=== PATIENT | female | born 1935 | race Caucasian/White ===

== ENCOUNTER 2023-07-25 11:29 | Emergency (ER) | payer MEDICARE, BC, SELFPAY ==
[2023-07-25] VITALS (14 sets, daily range): BP systolic 139–217; BP diastolic 61–93; BMI 24.4
[2023-07-25 11:58] LABS: % Basophils 1.1 % (0-2); % Eosinophils 0.4 % (0-6); % Immature Granulocytes 0.2 % (0-0.5); % Lymphocytes 29.4 % (20.5-51.1); % Monocytes 6.5 % (1.7-9.3); % Neutrophils 62.4 % (42.2-75.2); Absolute Basophils 0.1 10^3/uL (0-0.2); Absolute Lymphocytes 1.6 10^3/uL (1.2-3.4); Absolute Monocytes 0.4 10^3/uL (0.1-0.6); Absolute Neutrophils 3.5 10^3/uL (1.4-6.5); Hematocrit 35.5 % (37.0-47.0); Hemoglobin 11.7 g/dL (12.0-16.0); Mean Corpuscular Hgb 28.8 pg (27.0-31.0); Mean Corpuscular Volume 87.4 fL (81.0-99.0); Mean Platelet Volume 10.8 fL (7.4-10.4); Nucleated Red Blood Cells % 0 %; Platelet Count 222 10^3/uL (130-400); Red Blood Cell Count 4.06 10^6/uL (4.20-5.40); Red Cell Dist. Width 13.5 % (11.5-14.5); White Blood Cell Count 5.6 10^3/uL (4.8-10.8)
[2023-07-25 12:13] LABS: ALT (SGPT) 22 U/L (0-35); AST (SGOT) 35 U/L (14-36); Albumin 4.6 g/dl (3.5-5.0); Alkaline Phosphatase 83 U/L (38-126); Blood Urea Nitrogen 17 mg/dl (7-17); Calcium 9.3 mg/dl (8.4-10.2); Carbon Dioxide 28 mmol/L (22-30); Chloride 101 mmol/L (98-107); Glucose 106 mg/dl (70-99); Potassium 3.9 mmol/L (3.5-5.1); Sodium 136 mmol/L (135-145); Total Bilirubin 1.3 mg/dl (0.2-1.3); Total Protein 7.1 g/dl (6.3-8.2); eGFR > 60.00
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
--- NOTE | 2023-07-25 16:00 | EDRN ---
this RN spoke with Amado MCGARRY and talked about giving the pt PO blood pressure medication now, rechecking BP, then sending the pt home
--- NOTE | 2023-07-25 16:07 | EDRN ---
pts blood pressure elevated and is 210/80 (116), pharmacy called to send PO blood pressure medication, this RN spoke with family and pt will receive medication and blood pressure will be reassessed after medication administration
[2023-07-25] MEDS: ORETIC 12.5 MG PO (16:17)
--- NOTE | 2023-07-25 16:17 | EDRN ---
oral blood pressure medication administered, this RN provided the pt with an ER lunch box per the pts request with medication
--- NOTE | 2023-07-25 16:55 | EDRN ---
the pts blood pressure remains elevated, this RN notified Amado MCGARRY
--- NOTE | 2023-07-25 17:35 | EDRN ---
the pt pressed the call peterson and this RN entered the pts room, the pt stated to this RN that she was ready to go home, pts son and daughter in law are at the bedside and will make sure the pt follows new medication regimen
== END 2023-07-25 17:36 | disposition home or self-care (01) ==
LOC: EMR 11:29
PROVIDERS: Emergency Medicine; EMERGENCY PHYSICIAN Emergency Medicine; FAMILY PHYSICIAN Family Medicine
DX: I10 Essential (primary) hypertension (principal)
CPT/HCPCS: 99284; 80053; 85025; 93005

== ENCOUNTER → 2023-10-03 14:49 | Outpatient (REF) | payer MEDICARE, BC, SELFPAY | LOC: HWRCS 14:49 | PROVIDERS: ATTENDING PHYSICIAN Internal Medicine Cardiovascular Disease; FAMILY PHYSICIAN Family Medicine | DX: R42 Dizziness and giddiness (principal) | CPT/HCPCS: 93306 ==

== ENCOUNTER 2024-01-27 11:19 | Emergency (ER) | payer MEDICARE, BC, SELFPAY ==
[2024-01-27 11:20] VITALS: BP 152/71
[2024-01-27 11:23] VITALS: BP 152/71
[2024-01-27 11:36] LABS: % Basophils 1.2 % (0-2); % Eosinophils 3.3 % (0-6); % Immature Granulocytes 0.3 % (0-0.5); % Lymphocytes 37.1 % (20.5-51.1); % Neutrophils 51.1 % (42.2-75.2); Absolute Basophils 0.1 10^3/uL (0-0.2); Absolute Eosinophils 0.2 10^3/uL (0-0.7); Absolute Lymphocytes 2.2 10^3/uL (1.2-3.4); Absolute Monocytes 0.4 10^3/uL (0.1-0.6); Hematocrit 35.1 % (37.0-47.0); Hemoglobin 11.9 g/dL (12.0-16.0); Mean Corp Hgb Conc. 33.9 g/dL (33.0-37.0); Mean Corpuscular Hgb 29.2 pg (27.0-31.0); Mean Platelet Volume 12.1 fL (7.4-10.4); Nucleated Red Blood Cells % 0 %; Platelet Count 246 10^3/uL (130-400); Red Blood Cell Count 4.08 10^6/uL (4.20-5.40); Red Cell Dist. Width 14.2 % (11.5-14.5); White Blood Cell Count 5.8 10^3/uL (4.8-10.8)
[2024-01-27 11:50] LABS: ALT (SGPT) 30 U/L (0-35); AST (SGOT) 41 U/L (14-36); Albumin 4.7 g/dl (3.5-5.0); Alkaline Phosphatase 95 U/L (38-126); Blood Urea Nitrogen 18 mg/dl (7-17); Carbon Dioxide 27 mmol/L (22-30); Chloride 101 mmol/L (98-107); Glucose 106 mg/dl (70-99); Potassium 4.2 mmol/L (3.5-5.1); Sodium 141 mmol/L (135-145); Total Bilirubin 1.2 mg/dl (0.2-1.3); Total Protein 6.9 g/dl (6.3-8.2); eGFR > 60.00
[2024-01-27 12:01] LABS: Troponin I < 0.012 ng/ml
[2024-01-27 13:40] VITALS: BP 163/82; BP 181/89; BP 181/94; PULSE 74; PULSE 87; PULSE 90
[2024-01-27 14:27] LABS: Troponin I < 0.012 ng/ml
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
== END 2024-01-27 16:08 | disposition home or self-care (01) ==
LOC: EMR 11:19
PROVIDERS: Nurse Practitioner; EMERGENCY PHYSICIAN Student in an Organized Health Care Education/Training Program; FAMILY PHYSICIAN Family Medicine
DX: R55 Syncope and collapse (principal)
CPT/HCPCS: 99284; 80053; 84484; 85025; 93005

== ENCOUNTER → 2024-02-28 10:15 | Outpatient (REF) | payer MEDICARE, BC, SELFPAY | LOC: HWRCS 10:15 | PROVIDERS: ATTENDING PHYSICIAN Nurse Practitioner; FAMILY PHYSICIAN Family Medicine | DX: R55 Syncope and collapse (principal) | CPT/HCPCS: 93306 ==

== ENCOUNTER → 2024-08-20 10:16 | Outpatient (REF) | payer MEDICARE, BC, SELFPAY | LOC: HWRCS 10:16 | PROVIDERS: ATTENDING PHYSICIAN Internal Medicine; FAMILY PHYSICIAN Family Medicine | DX: I35.1 Nonrheumatic aortic (valve) insufficiency (principal); I31.39 Other pericardial effusion (noninflammatory); I10 Essential (primary) hypertension; I95.1 Orthostatic hypotension | CPT/HCPCS: 93306 ==